=== PATIENT | female | born 1975 | race Caucasian/White ===

== ENCOUNTER 2020-06-09 13:43 | Emergency (ER) | payer BC, SELFPAY ==
--- NOTE | ~2020-06-09 | CT_ITS ---
EXAMINATION: CT brain wo con DATE: 06/09/2020 14:11 INDICATION: Right facial droop TECHNIQUE: Computed tomography (CT) of the head was performed without intravenous contrast. Sagittal and coronal reconstructions were performed. The mA was adjusted according to patient size. Iterative reconstruction technique was employed. The dose-length product was 605.33 mGy-cm. COMPARISON: None FINDINGS: No acute intracranial hemorrhage, acute infarction or abnormal extra axial fluid collection. Ventricl es are normal and symmetric. No mass/mass effect. The orbits, paranasal sinuses and mastoid air cells are normal. IMPRESSION: 1. Normal head CT. No acute intracranial process. Reviewed, dictated and finalized at location A.
[2020-06-09 13:48] VITALS: BP 174/107; PULSE 97; RESP 18; TEMP 36.3; O2SAT 97
--- NOTE | 2020-06-09 14:00 | ECG_ITS ---
Measurements Intervals [place] Rate: 82 P: 46 WV: 164 QRS: 57 QRSD: 106 T: 44 QT: 368 QTc: 431 Interpretive Statements SINUS RHYTHM DELAYED PRECORDIAL R/S TRANSITION BASELINE WANDER- I, II, III, AVF BORDERLINE ECG Electronically Signed On 06-09-2020 21:53:09 CDT by Vaughn Henry D.O.
--- NOTE | 2020-06-09 14:03 | ED.GENADULT ---
HPI - General Adult General Chief complaint: Neuro Symptoms/Deficit Stated complaint: facial drooping Time Seen by Provider: 06/09/20 13:54 Source: patient History of Present Illness HPI narrative: Patient is a 44 y/o female complaining moderate to severe right facial weakness starting yesterday. She states that she noticed round 7:00 AM yesterday when she was brushing her teeth. She is unable to close her mouth fully and unable to close her right eye fully. There is no alleviating or exacerbating factor. She has no weakness or numbness in limbs. She has no difficulty with speech. Review of Systems Constitutional: Constitutional: Denies chills, Denies fever(s), Reports headache(s) and Denies weakness Eyes: Eyes: Denies blurry vision ENT: Reports headache(s) and Denies neck pain Cardiovascular: Cardiovascular: Denies chest pain and Denies dyspnea Respiratory: Respiratory: Denies cough and Denies dyspnea Gastrointestinal: Gastrointestinal: Denies abdominal pain, Denies diarrhea, Denies nausea and Denies vomiting Genitourinary: Genitourinary: Denies hematuria and Denies dysuria Musculoskeletal: Musculoskeletal: Denies back pain and Denies neck pain Neurologic: Reports as per HPI, Reports headache(s), Reports focal weakness (right facial weakness) and Denies weakness [facility] Past Medical History Medical History (Updated 06/09/20 @ 15:20 by Ana Aviles MD) Diabetes Social History Social History Gender identity (if verbalized by the patient): Female Exam Const: General: no acute distress and well developed Orientation/consciousness: oriented to person, oriented to place, oriented to time and patient oriented x3 HENMT: Head: normocephalic Ears: external ears normal General nose exam: Normal external nose present Eyes: General: appearance normal, both eyes and all related structures Conjunctivae: conjunctivae normal Neck: Neck: normal visual inspection and full ROM Chest: Chest palpation & inspection: normal inspection of the chest and no tenderness Resp: Effort & Inspection: normal respiratory effort Auscultation: clear to auscultation bilaterally Cardio: Rate: regular rate Rhythm: regular rhythm GI: GI Palp: No abdominal tenderness and Yes Soft to palpation Skin: General skin exam: normal color and turgor normal Neuro: General: oriented to person, oriented to place, oriented to time and patient oriented x3 Cranial nerves: Yes facial symmetry (right facial droop) Cognition (Neuro): normal cognition Motor exam (neuro): 5/5 motor strength present throughout Sensory Exam: normal sensation Coordination: [id number] test normal Extrem: General: normal to inspection, full ROM and no pedal edema Psych: Appearance: grossly normal Mental Status: mental status grossly normal Affect: normal affect Course Vital Signs Vital signs: Vital Signs Temperature 36.3 C L 06/09/20 13:48 Pulse Rate 97 06/09/20 13:48 Respiratory Rate 18 06/09/20 13:48 Blood Pressure 174/107 H 06/09/20 13:48 Pulse Oximetry 97 06/09/20 13:48 Temperature 36.3 C L 06/09/20 13:48 Pulse Rate 85 06/09/20 15:19 Respiratory Rate 20 06/09/20 15:19 Blood Pressure 120/76 06/09/20 15:19 Pulse Oximetry 97 06/09/20 15:19 Medical Decision Making Vital Signs Vital Signs: Vital Signs Temperature 36.3 C L 06/09/20 13:48 Pulse Rate 97 06/09/20 13:48 Respiratory Rate 18 06/09/20 13:48 Blood Pressure 174/107 H 06/09/20 13:48 Pulse Oximetry 97 06/09/20 13:48 Temperature 36.3 C L 06/09/20 13:48 Pulse Rate 85 06/09/20 15:19 Respiratory Rate 20 06/09/20 15:19 Blood Pressure 120/76 06/09/20 15:19 Pulse Oximetry 97 06/09/20 15:19 Lab Data Result diagrams: 06/09/20 14:24 06/09/20 14:24 Labs: Lab Results 06/09/20 06/09/20 Range/Units 14:24 14:24 WBC 5.8 (4.5-10.0) K/mm3 RBC 4.48 (
[2020-06-09 14:29] LABS: Basophils Percent Auto 0.5 % (0.2-1.2); Eosinophils Absolute Auto 0.1 K/mm3 (0-0.3); Eosinophils Percent Auto 2.4 % (0-4.4); Hematocrit 41.5 % (37.0-47.0); Hemoglobin 14.3 g/dL (12.0-15.0); Immature Granulocyte Absolute 0.02 K/mm3 (0.00-0.031); Immature Granulocyte Percent A 0.3 % (0-0.5); Lymphocytes Absolute Auto 1.36 K/mm3 (0.9-3.2); Lymphocytes Percent Auto 23.6 % (18.3-44.2); Mean Corpuscular HGB Conc 34.5 g/dl (32-36); Mean Corpuscular Hemoglobin 31.9 pg (26-34); Mean Corpuscular Volume 92.6 fl (80-100); Mean Platelet Volume 10.6 fl (7.4-10.4); Monocytes Absolute Auto 0.4 K/mm3 (0.1-0.6); Monocytes Percent Auto 6.6 % (2.6-8.5); Neutrophils Absolute Auto 3.8 K/mm3 (1.3-6.7); Neutrophils Percent Auto 66.6 % (45.5-73.1); Platelet Count Result 232 k/mm3 (150-375); Red Blood Count 4.48 M/mm3 (4.2-5.4); Red Cell Distribution Width 11.9 % (11.5-14.5); White Blood Count 5.8 K/mm3 (4.5-10.0)
[2020-06-09 14:31] VITALS: BP 137/94; PULSE 79; RESP 22; O2SAT 98
[2020-06-09 14:36] VITALS: BP 137/94; PULSE 79; O2SAT 100
[2020-06-09 14:40] LABS: Anion Gap 6 mmol/L (8-16); Blood Urea Nitrogen 11 mg/dL (7-17); Calcium 8.9 mg/dL (8.4-10.2); Carbon Dioxide 28 mmol/L (22-30); Chloride 102 mmol/L (98-107); Estimated CRCL calculation 89 ml/min; Estimated Glomerular Filt Rate > 60; Glucose 217 mg/dL (65-105); Sodium 136 mmol/L (137-145)
[2020-06-09 14:46] VITALS: BP 140/92; PULSE 77; RESP 18; O2SAT 99
[2020-06-09 14:47] VITALS: PULSE 71; RESP 15; O2SAT 99
[2020-06-09 15:19] VITALS: BP 120/76; PULSE 85; RESP 20; O2SAT 97
== END 2020-06-09 15:29 | disposition home or self-care (01) ==
PROVIDERS: Emergency Provider Emergency Medicine
DX: G51.0 Bell's palsy (principal); I10 Essential (primary) hypertension; E11.9 Type 2 diabetes mellitus without complications; R94.31 Abnormal electrocardiogram [ECG] [EKG]
CPT/HCPCS: 36415; 70450; 80048; 85025; 93005; 99284